=== PATIENT | female | born 1985 | race African-American/Black ===

== ENCOUNTER 2017-01-26 09:15 | Inpatient (IN) | payer OTHER ==
[2017-01-26] VITALS (13 sets, daily range): BP systolic 112–143; BP diastolic 58–81
[~2017-01-26] VITALS: Ht 162.6 cm; Wt 71.6 kg
[~2017-01-26 09:15] MED LIST: CAMILA0.35 MG PO; FERROCITE324 MG PO; IBUPROFEN800 MG PO; IRON325 MG PO; PRENATAL TABLE1 EAC3 PO
[2017-01-26 10:39] LABS: BASOPHIL COUNT 0.1 K/uL (0-0.1); EOSINOPHIL (%) 0.9 % (0-5); EOSINOPHIL COUNT 0.1 K/uL (0-0.3); HEMATOCRIT 33.7 % (36.0-46.0); IMMATURE GRANULOCYTE (%) 0.9 % (0.0-0.7); IMMATURE GRANULOCYTE COUNT 0.1 K/uL; LYMPHOCYTE COUNT 1.7 K/uL (1.0-2.8); MCH 30.9 PG (29.0-34.0); MCHC 33.2 G/DL (30.0-36.0); MCV 92.8 FL (83-99); MEAN PLAT.VOLUME 9.9 uM^3 (9.5-12.4); MONOCYTE (%) 9.9 % (3-12); MONOCYTE COUNT 0.6 K/uL (0-0.8); PLATELET COUNT 233 K/uL (156-360); RBC DIS.WIDTH-CV 12.4 % (11.8-14.6); RBC DIS.WIDTH-SD 42.3 % (39-53); RED BLOOD COUNT 3.63 M/uL (3.80-5.20); WHITE BLOOD COUNT 6.5 K/uL (4.1-10.2)
[2017-01-27 07:37] LABS: EOSINOPHIL (%) 0.7 % (0-5); EOSINOPHIL COUNT 0.1 K/uL (0-0.3); HEMATOCRIT 31.5 % (36.0-46.0); IMMATURE GRANULOCYTE (%) 0.5 % (0.0-0.7); IMMATURE GRANULOCYTE COUNT 0.1 K/uL; LYMPHOCYTE COUNT 2.3 K/uL (1.0-2.8); MCH 31.5 PG (29.0-34.0); MCHC 33.7 G/DL (30.0-36.0); MCV 93.8 FL (83-99); MEAN PLAT.VOLUME 10.5 uM^3 (9.5-12.4); MONOCYTE (%) 9.3 % (3-12); MONOCYTE COUNT 1.3 K/uL (0-0.8); NEUTROPHIL (%) 72.7 % (45-76); PLATELET COUNT 215 K/uL (156-360); RBC DIS.WIDTH-CV 12.4 % (11.8-14.6); RBC DIS.WIDTH-SD 42.5 % (39-53); RED BLOOD COUNT 3.36 M/uL (3.80-5.20); WHITE BLOOD COUNT 13.8 K/uL (4.1-10.2)
[2017-01-27 07:45] VITALS: BP 119/70
[2017-01-27] MEDS ORDERED: Tylenol Extra Streng PO (14:22)
[2017-01-27 14:50] VITALS: BP 113/59
[2017-01-28 07:49] VITALS: BP 118/72
== END 2017-01-28 15:44 | disposition home or self-care (01) | DRG 775 ==
LOC: LDRP-OP 09:15 → 2WEST 09:16 → LDRP-OP 17:09 → 2WEST 17:49 → LDRP-OP 03-01 13:44
PROVIDERS: Advanced Practice Midwife
DX: O69.81X0 Labor and delivery complicated by cord around neck, without compression, not applicable or unspecified (principal); O43.123 Velamentous insertion of umbilical cord, third trimester; O99.214 Obesity complicating childbirth; E66.3 Overweight; Z68.24 Body mass index [BMI] 24.0-24.9, adult; Z3A.39 39 weeks gestation of pregnancy; Z37.0 Single live birth
CPT/HCPCS: 85025; J7120